=== PATIENT | female | born 1955 | race Caucasian/White ===

== ENCOUNTER 2018-08-05 13:13 | Emergency (ER) | payer OTHER, MEDICARE ==
[~2018-08-05] VITALS: Ht 172.7 cm; Wt 74.4 kg
[~2018-08-05 13:13] MED LIST: DURAGESIC TOP; LORCET 10-6501 EAC1 PO; REMERON15 MG PO; Z.0.NEURONTIN100 MG PO; Z.0.VALIUM2 MG PO; Z.0.XANAX0.25 MG PO; Z.0.ZANAFLEX4 M1 PO; [UNRECOGNIZED DRUG - OTHER] PO
[2018-08-05] MEDS ORDERED: ASPIRIN 81 MG CHEW TAB PO ONE (13:30)
[2018-08-05] MEDS ORDERED: HYDRALAZINE HCL 20 MG/ML VIAL IV ONE (13:45)
[2018-08-05 14:43] LABS: BASOPHILS # (AUTO) 0.1 (0.0-0.1); EOSINOPHILS # (AUTO) 0.1 (0.0-0.4); EOSINOPHILS % 2.9 % (0.0-6.0); HEMATOCRIT 32.4 % (34.2-44.1); HEMOGLOBIN 10.2 g/dL (12.0-16.0); LYMPHOCYTES # (AUTO) 1.6 (1.0-3.2); LYMPHOCYTES % 32.9 % (18.0-39.1); MEAN CORPUSCULAR HGB CONC 31.5 g/dL (31-35); MEAN CORPUSCULAR VOLUME 95.3 fL (81-99); MONOCYTES # (AUTO) 0.5 (0.2-0.8); MONOCYTES % 9.7 % (4.4-11.3); NEUTROPHILS # (AUTO) 2.6 (2.1-6.9); NEUTROPHILS % 53.1 % (38.7-80.0); PLATELET COUNT 289 x10e3/uL (140-360); RED CELL DISTRIBUTION WIDTH 16.6 % (11.7-14.4)
[2018-08-05 14:54] LABS: INR 0.78; PARTIAL THROMBOPLASTIN TIME 27.3 seconds (23.8-35.5); PROTHROMBIN TIME 11.6 seconds (11.9-14.5)
[2018-08-05 14:58] LABS: BACTERIA,URINE MODERATE /HPF; BILIRUBIN,URINE NEGATIVE (NEGATIVE); CLARITY,URINE CLEAR (CLEAR); COLOR,URINE YELLOW (YELLOW); EPITHELIAL CELLS,URINE MODERATE /LPF; KETONES,URINE NEGATIVE (NEGATIVE); LEUKOCYTE ESTERASE ,URINE NEGATIVE (NEGATIVE); NITRITE,URINE NEGATIVE (NEGATIVE); PROTEIN,URINE DIPSTICK NEGATIVE (NEGATIVE); URINE UROBILINOGEN 0.2 mg/dL (0.2 - 1)
[2018-08-05 15:05] LABS: ALANINE AMINOTRANSFERASE 18 IU/L (0-55); ALBUMIN 3.3 g/dL (3.5-5.0); ALBUMIN/GLOBULIN RATIO 1.1 (0.8-2.0); ALKALINE PHOSPHATASE 159 IU/L (40-150); ANION GAP 14.6 mmol/L (8-16); BLOOD UREA NITROGEN 13 mg/dL (7-26); BUN/CREATININE RATIO 15 (6-25); CALCIUM 8.9 mg/dL (8.4-10.2); CARBON DIOXIDE 27 mmol/L (22-29); CHLORIDE 97 mmol/L (98-107); CREATINE KINASE 331 IU/L (29-168); CREATININE, SERUM 0.86 mg/dL (0.57-1.11); EST GLOMERULAR FILTRATION RATE > 60 ML/MIN (60-); GLUCOSE 89 mg/dL (74-118); LIPASE 45 U/L (8-78); POTASSIUM 3.6 mmol/L (3.5-5.1); SODIUM 135 mmol/L (136-145)
--- NOTE | 2018-08-05 16:22 | Diagnostic Imaging Report ---
EXAMINATION: CHEST 2 VIEWS INDICATION: Chest pain ^ORDER PLACED BY ^[id number] ^[id number] ^Y COMPARISON: None FINDINGS: PA and lateral views TUBES and LINES: None. LUNGS: Low lung volumes. Bibasilar atelectasis. There is no evidence of pneumonia or pulmonary edema. PLEURA: No pleural effusion or pneumothorax. HEART AND MEDIASTINUM: The cardiomediastinal silhouette is unremarkable. BONES AND SOFT TISSUES: Fixation of the cervical spine is partially included on this exam. No acute osseous lesion. Soft tissues are unremarkable. UPPER ABDOMEN: No free air under the diaphragm. Right upper quadrant cholecystectomy clips. IMPRESSION: Bibasilar atelectasis. Cannot exclude developing infection. Recommend follow-up chest radiograph in 2-3 weeks. Signed by: Dr. Ayana Carpenter M.D. on 08/05/2018 4:18 PM
[2018-08-05] MEDS ORDERED: LABETALOL HCL 5 MG/ML 20ML VIAL IV ONE (17:02)
[2018-08-05 18:00] LABS: CREATINE KINASE MB 4.6 ng/mL (0-5.0)
== END 2018-08-05 18:33 | disposition left against medical advice (07) ==
LOC: ER 13:13
DX: R07.9 Chest pain, unspecified (principal); I16.0 Hypertensive urgency; J98.11 Atelectasis; F43.10 Post-traumatic stress disorder, unspecified; F41.9 Anxiety disorder, unspecified; G89.29 Other chronic pain; Z98.84 Bariatric surgery status
CPT/HCPCS: 36415; 71046; 80053; 81001; 82550; 82553; 83690; 83880; 84443; 84484; 85025; 85379; 85610; 85730; 87086; 93005; 93970; 99284; J0360; J3490